=== PATIENT | female | born 1995 | race Two or more races ===

== ENCOUNTER 2021-05-21 08:34 | Emergency (ER) | payer MEDICAID ==
[~2021-05-21] VITALS: Ht 162.6 cm; Wt 104.3 kg
[2021-05-21 09:41] VITALS: BP 108/79
== END 2021-05-21 10:15 | disposition home or self-care (01) ==
LOC: ER 08:34
DX: L02.221 Furuncle of abdominal wall (principal)

== ENCOUNTER 2021-06-02 07:26 | Emergency (ER) | payer MEDICAID ==
[~2021-06-02] VITALS: Ht 152.4 cm; Wt 104.3 kg
[2021-06-02 07:36] VITALS: BP 141/96
== END 2021-06-02 09:22 | disposition home or self-care (01) ==
LOC: ER 07:26
DX: Z48.01 Encounter for change or removal of surgical wound dressing (principal)

== ENCOUNTER 2021-08-05 06:36 | Emergency (ER) | payer MEDICAID ==
[~2021-08-05] VITALS: Ht 162.6 cm; Wt 105.2 kg
[2021-08-05 08:37] VITALS: BP 123/65
== END 2021-08-05 09:06 | disposition home or self-care (01) ==
LOC: ER 06:36
DX: T24.221A Burn of second degree of right knee, initial encounter (principal); X15.2XXA Contact with hotplate, initial encounter; Y93.89 Activity, other specified; Y92.89 Other specified places as the place of occurrence of the external cause; Y99.8 Other external cause status
CPT/HCPCS: 16020

== ENCOUNTER 2022-03-25 07:05 | Emergency (ER) | payer MEDICAID ==
[~2022-03-25] VITALS: Ht 162.6 cm; Wt 104.3 kg
[2022-03-25 07:33] VITALS: BP 134/89
[2022-03-25 08:24] LABS: Basophils # (auto) 0.1 10 ^3/uL (0-0.2); Basophils % (auto) 0.7 % (0.0-2.0); Eosinophils # (auto) 0.1 10 ^3/uL (0-0.8); Eosinophils % (auto) 1.6 % (0.0-7.0); Hematocrit 43.9 % (36.0-46.0); Hemoglobin 14.4 g/dL (12.2-16.2); Lymphocytes # (auto) 2.8 10 ^3/uL (0.4-5.4); Lymphocytes % (auto) 31.8 % (10.0-50.0); Mean Corpuscular Hemoglobin 28.3 pg (28.0-32.0); Mean Corpuscular Hgb Conc. 32.8 g/dL (32.0-36.0); Mean Corpuscular Volume 86.4 fL (80.0-100.0); Monocytes # (auto) 0.5 10 ^3/uL (0-1.3); Monocytes % (auto) 6.1 % (0.0-12.0); Neutrophils # (auto) 5.3 10 ^3/uL (1.6-8.6); Neutrophils % (auto) 59.8 % (37.0-80.0); Red Blood Cells 5.08 10^6/uL (4.0-5.20); Red Cell Distribution Width 14.3 % (11.8-14.3); White Blood Cell 8.9 10^3/uL (4.4-10.8)
== END 2022-03-25 10:27 | disposition home or self-care (01) ==
LOC: ER 07:05
DX: O20.0 Threatened abortion (principal); Z3A.09 9 weeks gestation of pregnancy
CPT/HCPCS: 36415; 76801; 76817; 84702; 85025

== ENCOUNTER → 2022-04-02 | Emergency (ER) | payer MEDICAID ==
[~2022-04-02] VITALS: Ht 162.6 cm; Wt 101.6 kg
[2022-04-02 11:51] VITALS: BP 133/88
== END | disposition home or self-care (01) ==
LOC: ER 07:25
DX: O03.9 Complete or unspecified spontaneous abortion without complication (principal); Z91.018 Allergy to other foods; Z3A.09 9 weeks gestation of pregnancy
CPT/HCPCS: 36415; 76801; 76817; 84702

== ENCOUNTER 2024-03-22 11:31 | Emergency (ER) | payer MEDICAID ==
[~2024-03-22] VITALS: Ht 162.6 cm; Wt 104.9 kg
[2024-03-22 12:12] VITALS: BP 138/88; PULSE 91; RESP 18; TEMP 98.8; O2SAT 96
[2024-03-22] MEDS ORDERED: CEPH500C PO (12:53)
== END 2024-03-22 13:07 | disposition home or self-care (01) ==
LOC: ER 11:31
DX: R19.07 Generalized intra-abdominal and pelvic swelling, mass and lump (principal); L08.89 Other specified local infections of the skin and subcutaneous tissue; Z79.899 Other long term (current) drug therapy; Z91.018 Allergy to other foods

== ENCOUNTER 2024-04-03 16:54 | Emergency (ER) | payer MEDICAID ==
[~2024-04-03] VITALS: Ht 162.6 cm; Wt 103.2 kg
[~2024-04-03 16:54] MED LIST: CEPH500C PO
[2024-04-03 17:15] VITALS: BP 128/74; PULSE 76; RESP 17; TEMP 98.2; O2SAT 98
[2024-04-03] MEDS: LIDOCAINE 1% HCL (LOCAL ANESTH.) INJ 20ML MDV IJ ONE (17:21)
[2024-04-03] MEDS: LIDOCAINE 1% HCL (LOCAL ANESTH.) INJ 20ML MDV ONE (17:28)
[2024-04-03] MEDS ORDERED: BACDST PO (17:30)
== END 2024-04-03 17:32 | disposition home or self-care (01) ==
LOC: ER 16:54
DX: L02.211 Cutaneous abscess of abdominal wall (principal); Z79.899 Other long term (current) drug therapy; Z91.018 Allergy to other foods
CPT/HCPCS: 10060; 99283; J2001

== ENCOUNTER 2024-04-05 11:44 | Emergency (ER) | payer MEDICAID ==
[~2024-04-05] VITALS: Ht 162.6 cm; Wt 102.3 kg
[~2024-04-05 11:44] MED LIST changes: +BACDST PO
[2024-04-05 12:51] VITALS: BP 122/68; PULSE 88; RESP 18; TEMP 98.9; O2SAT 96
== END 2024-04-05 13:08 | disposition home or self-care (01) ==
LOC: ER 11:44
DX: Z48.00 Encounter for change or removal of nonsurgical wound dressing (principal)

== ENCOUNTER 2024-09-12 16:25 | Emergency (ER) | payer MEDICAID ==
[~2024-09-12] VITALS: Ht 165.1 cm; Wt 100.0 kg
--- NOTE | 2024-09-12 16:54 | ED.PDOC ---
History of Present Illness HPI Comments 29 y.o female presents to the ED for a chief complaint of fatigue, SOB, and cough that presented 2 days ago. Patient reports ongoing symptoms with new onset of a tingling sensation to her fingers which she states has not had in the past. Patient denies any chest pain, numbness, focal weaknesses, slurred speech or confusion. Patient is ambulating with steady gait. She has a medical history of gestational DM. Time Seen by MD: 16:48 Primary Care Provider: BRIGETTE Lucero Notes: Nurses Notes, Medications, Allergies Allergies: Coded Allergies: Fruit Extracts (Verified Allergy, Severe, 03/25/22) Home Meds Active Scripts Gabapentin (Gabapentin) 300 Mg Cap, 1 CAP PO TID, #20 CAP 0 Refills Prov:OMAR VILLELA PAC 09/12/24 Albuterol Sulfate (Albuterol Sulfate Hfa) 108 Mcg/Act Aer, 108 MCG IN Q4HP PRN, #1 AER Prov:OMAR VILLELA PAC 09/12/24 Sulfamethoxazole W/Trimethopri (Bactrim Ds Tablet) 1 Tab Tb, 1 TAB PO BID for 10 Days, #20 TAB Prov:LEEANNE POOLE 04/03/24 Cephalexin Monohydrate (Cephalexin) 500 Mg Cap, 1 CAP PO QID, #40 CAP Prov:LEEANNE POOLE 03/22/24 Information Source: Patient Mode of Arrival: Ambulatory Severity: Moderate Timing: Days (2) Duration: Since onset Prehospital treatment: None Past Medical History PAST MEDICAL HISTORY: Denies Past Medical History (Other): gestational DM Surgical History: Cholecystectomy, [employer] History: Denies all [employer] Hx Family History Family History: Reviewed,noncontributory to illness Social History Smoker: Non-Smoker Alcohol: Denies ETOH Use Drugs: Denies Drug Use Lives In: Home Constitutional: denies: chills, diaphoresis, fatigue, fever, malaise, sweats, weakness, others EENTM: denies: blurred vision, double vision, ear bleeding, ear discharge, ear drainage, ear pain, ear ringing, eye pain, eye redness, hearing loss, mouth pain, mouth swelling, nasal discharge, nose bleeding, nose congestion, nose pain, photophobia, tearing, throat pain, throat swelling, voice changes, others Respiratory: reports: cough, shortness of breath; denies: hemoptysis, orthopnea, SOB at rest, SOB with excertion, stridor, wheezing, others Cardiovascular: denies: chest pain, dizzy spells, diaphoresis, Dyspnea on exertion, edema, irregular heart beat, left arm pain, lightheadedness, palpitations, PND, syncope, others Gastrointestinal: denies: abdomen distended, abdominal pain, blood streaked bowels, constipated, diarrhea, dysphagia, difficulty swallowing, hematemesis, me lorraine, nausea, poor appetite, poor fluid intake, rectal bleeding, rectal pain, vomiting, others Genitourinary: denies: abnormal vagina bleeding, burning, dyspareunia, dysuria, flank pain, frequency, hematuria, incontinence, pain, , vagina discharge, urgency, others Neurological: reports: tingling (on bilateral hands and fingers ); denies: dizziness, fainting, headache, left sided numbness, left sided weakness, numbness, paresthesia, pre-existing deficit, right sided numbness, right sided weakness, seizure, speech problems, tremors, weakness, others Musculoskeletal: denies: back pain, gout, joint pain, joint swelling, muscle pain, muscle stiffness, neck pain, others Integumetry: denies: bruises, change in color, change in hair/nails, dryness, laceration, lesions, lumps, rash, wounds, others Allergic/Immunocompromised: denies: Difficulty Healing, Frequent Infections, Hives, Itching, others Hematologic/Lymphatic: denies: anemia, blood clots, easy bleeding, easy bruising, swollen glands, others Endocrine: denies: excessive hunger, excessive sweating, excessive thirst, excessive urination, flushing, intolerance to cold, intolerance to heat, unexplained weight gain, unexplained weight loss, others Psychiatric: denies: anxiety, bipolar disorder, depression, hopeless, panic disorder, schizophrenia, sleepless, suicidal, others All Other Systems: Reviewed and Negative Physical Exam General Appearance: Moderate Distress ([id number] distress due to shortness a breath and hand concerns.), Obese HEENT: Normal ENT Inspection, Pharynx Normal, TMs Normal Neck: Full Range of Motion, Non-Tender, Normal, Normal Inspection Respiratory: Chest Non-Tender, Lungs Clear, No Accessory Muscle Use, No Respiratory Distress, Normal Breath Sounds, Other (Unremarkable auscultation bilateral lung hernandez.) Cardiovascular: No Edema, No JVD, No Murmur, No Gallop, Normal Peripheral Pulses, Regular Rate/Rhythm Breast Exam: Deferred Gastrointestinal: No Organomegaly, Non Tender, No Pulsatile Mass, Normal Bowel Sounds, Soft Genitalia: Deferred Pelvic: Deferred Rectal: Deferred Extremities: No calf tenderness, Normal capillary refill, Normal range of motion, No pedal edema, Other (Evaluation of bilateral upper extremities is unremarkable. No signs of trauma. Patient complains of tingling. No signs of infection.) Neurologic: Alert, No Motor Deficits, Normal Affect, Normal Mood, No Sensory Deficits Cerebellar Function: Normal Reflexes: Normal Skin: Dry, Normal Color, Warm Lymphatic: No Adenopathy Was a procedure done? Was a procedure done?: No Differential Dx Considerations may include: Influenza, URI, viral syndrome, Dehydration, Electrolyte imbalance X-Ray, Labs, Meds, VS Vital Signs Date Time Temp Pulse Resp B/P (MAP) Pulse Ox O2 Delivery O2 Flow Rate FiO2 09/12/24 16:45 89 09/12/24 16:30 98.5 106 18 152/79 (103) 96 138/96 (110) Lab Test 09/12/24 18:54 09/12/24 17:11 09/12/24 16:54 09/12/24 16:50 Range/Units Urine Color Yellow Yellow Urine Clarity Clear Clear Urine pH 6.5 5.0-9.0 Urine Specific [place] 1.020 1.001-1.035 Urine Protein Negative Negative Urine Ketones Negative Negative Urine Blood Negative Negative /uL Urine Nitrite Negative Negative Urine Bilirubin Negative Negative Urine Urobilinogen Normal Negative mg/dL Urine Leukocyte Esterase 2+ Negative /uL Urine RBC 1 0 - 4 /hpf Urine WBC 4 0 - 5 /hpf Urine Squamous Epithelial Cells Few <5 /hpf Urine Bacteria Few H None Seen /hpf Urine Glucose Normal Normal mg/dL Urine Test Negative Negative White Blood Count 9.8 4.4-10.8 10^3/uL Red Blood Count 5.12 4.0-5.20 10^6/uL Hemoglobin 14.9 12.2-16.2 g/dL Hematocrit 43.7 36.0-46.0 % Mean Corpuscular Volume 85.3 80.0-100.0 fL Mean Corpuscular Hemoglobin 29.2 28.0-32.0 pg Mean Corpuscular Hemoglobin Concent 34.2 32.0-36.0 g/dL Red Cell Distribution Width 13.6 11.8-14.3 % Platelet Count 364 140-450 10^3/uL Mean Platelet Volume 7.1 6.9-10.8 fL Neutrophils (%) (Auto) 71.0 37.0-80.0 % Lymphocytes (%) (Auto) 22.7 10.0-50.0 % Monocytes (%) (Auto) 5.0 0.0-12.0 % Eosinophils (%) (Auto) 0.7 0.0-7.0 % Basophils (%) (Auto) 0.6 0.0-2.0 % Neutrophils # (Auto) 6.9 1.6-8.6 10 ^3/uL Lymphocytes # (Auto) 2.2 0.4-5.4 10 ^3/uL Monocytes # (Auto) 0.5 0-1.3 10 ^3/uL Eosinophils # (Auto) 0.1 0-0.8 10 ^3/uL Basophils # (Auto) 0.1 0-0.2 10 ^3/uL Nucleated Red Blood Cells 0.0 % D-Dimer, Quantitative < 0.19 0.0-0.49 mg/L FEU Sodium Level 141 136-145 mmol/L Potassium Level 3.8 3.5-5.1 mmol/L Chloride Level 105 98-107 mmol/L Carbon Dioxide Level 28 20-31 mmol/L Anion Gap 8 5-15 Blood Urea Nitrogen 14 9-23 mg/dL Creatinine 0.81 0.550-1.02 mg/dL Glomerular Filtration Rate Calc 99 >90 mL/min BUN/Creatinine Ratio 17.3 10.0-20.0 Serum Glucose 97 74-106 mg/dL Calcium Level 10.2 8.7-10.4 mg/dL Influenza Type A Antigen Negative Negative Influenza Type B Antigen Negative Negative SARS-CoV-2 Antigen (Rapid) Negative NEGATIVE POC Glucose 104 70-106 mg/dl X-Ray, Labs, Meds, VS Comment All studies performed the ED were evaluated by me personally. EKG revealed a sinus rhythm with a rate of 89. Borderline short ME interval with low voltage in the precordial leads and baseline wander in leads two three V3 V4 and V5. ME interval of 110 and a QT interval of 359. All serum laboratories were unremarkable for any systemic illness. Urinalysis revealed a urinary tract infection. Chest x-ray was unremarkable for any consolidation or pneumonia. X- ray of cervical spine was unremarkable for any degenerative disc disease. Patient appears to be suffering from some neuropathy of her hands as well as a viral illness and a urinary tract infection. Advised patient utilize antibiotics as directed until completion additionally, advised patient utilize additional medication as needed and follow up with the primary care provider for discussions related to her bilateral hand concerns. Time of 1ST Reevaluation: 20:27 Reevaluation 1ST: Unchanged Consultation: PCP Patient Education/Counseling: Diagnosis, Treatment, Prognosis Family Education/Counseling: Diagnosis, Treatment, No Family Present Departure 1 Departure Time of Disposition: 20:27 Impression: Primary Impression: Neuropathy of hand Additional Impressions: Viral upper respiratory illness UTI (urinary tract infection) Disposition: HOME / SELF CARE / HOMELESS Condition: Stable Additional Instructions: Advised patient utilize medication as needed and additionally, patient will need to follow up with the primary care provider for continued evaluation of bilateral hand concerns. e-Prescriptions Nitrofurantoin Monohydrate Mac (Macrobid) 100 Mg Cap 100 MG PO BID for 5 Days, #10 CAP Prov: OMAR VILLELA PAC 09/12/24 Gabapentin (Gabapentin) 300 Mg Cap 1 CAP PO TID, #20 CAP 0 Refills Prov: OMAR VILLELA PAC 09/12/24 Albuterol Sulfate (Albuterol Sulfate Hfa) 108 Mcg/Act Aer 108 MCG IN Q4HP PRN, #1 AER Prov: OMAR VILLELA PAC 09/12/24 Discharged With: Self, Friend Critical Care Note Critical Care Time?: No Stability Stability form required: No I personally scribed for OMAR VILLELA PAC ([email or web address]) on 09/12/24 at 16:54. Electronically submitted by Sveta Keller ([facility]). OMAR VILLELA PAC Sep 12, 2024 16:54
--- NOTE | 2024-09-12 17:08 | ECG ---
[facility] Test Date: 2024-09-12 Test Time: 16:45:38 Pat Name: NICHOLAS PORTER Department: ER Room: Gender: F Campus President: ANGE : 1995 Requested By: OMAR VILLELA Order Number: [id number] Reading MD: Chau Mann Measurements Intervals Carrier Rate: 89 P: 64 [place]: 110 QRS: 22 QRSD: 95 T: 24 QT: 359 QTc: 437 Interpretive Statements Sinus rhythm Borderline short [place] interval Low voltage, precordial leads Baseline wander in lead(s) II,III,aVF,V3,V4,V5 Electronically Signed On 09-19-2024 9:48:08 PST by Chau Mann Please click the below link to view image of tracing.
[2024-09-12 17:31] LABS: Basophils # (auto) 0.1 10 ^3/uL (0-0.2); Basophils % (auto) 0.6 % (0.0-2.0); Eosinophils # (auto) 0.1 10 ^3/uL (0-0.8); Eosinophils % (auto) 0.7 % (0.0-7.0); Hematocrit 43.7 % (36.0-46.0); Hemoglobin 14.9 g/dL (12.2-16.2); Lymphocytes # (auto) 2.2 10 ^3/uL (0.4-5.4); Lymphocytes % (auto) 22.7 % (10.0-50.0); Mean Corpuscular Hemoglobin 29.2 pg (28.0-32.0); Mean Corpuscular Hgb Conc. 34.2 g/dL (32.0-36.0); Mean Corpuscular Volume 85.3 fL (80.0-100.0); Monocytes # (auto) 0.5 10 ^3/uL (0-1.3); Neutrophils # (auto) 6.9 10 ^3/uL (1.6-8.6); Platelet Count (auto) 364 10^3/uL (140-450); Red Blood Cells 5.12 10^6/uL (4.0-5.20); Red Cell Distribution Width 13.6 % (11.8-14.3); White Blood Cell 9.8 10^3/uL (4.4-10.8)
[2024-09-12 17:49] LABS: Anion Gap 8 (5-15); Carbon Dioxide 28 mmol/L (20-31); Chloride 105 mmol/L (98-107); Potassium 3.8 mmol/L (3.5-5.1); Sodium 141 mmol/L (136-145)
[2024-09-12 17:50] LABS: Calcium 10.2 mg/dL (8.7-10.4)
[2024-09-12 17:51] LABS: COVID19 ANTIGEN SOFIA FIA NEGATIVE (NEGATIVE)
[2024-09-12 17:52] LABS: Rapid Influenza A Negative (Negative); Rapid Influenza B Negative (Negative)
[2024-09-12 17:55] LABS: BUN/Creatinine Ratio 17.3 (10.0-20.0); Blood Urea Nitrogen 14 mg/dL (9-23); Glucose 97 mg/dL (74-106)
[2024-09-12 19:41] LABS: Urine Bacteria FEW /hpf (None Seen); Urine Blood Negative /uL (Negative); Urine Clarity Clear (Clear); Urine Color Yellow (Yellow); Urine Protein, UAD Negative (Negative); Urine Urobilinogen Normal (Negative); Urine WBC 4 /hpf (0 - 5); Urine pH 6.5 (5.0-9.0)
--- NOTE | 2024-09-12 20:05 | DVH ---
EXAMINATION: AP portable chest radiograph CLINICAL HISTORY: Shortness of breath COMPARISON: None TECHNIQUE: Single view of the chest FINDINGS: Negative AP chest. No dominant consolidations. The costophrenic angles are clear. No sizable pleural effusions or pneumo thorax identified. The cardiomediastinal silhouette appears within normal limits given technique. IMPRESSION: 1. Negative AP chest.
--- NOTE | 2024-09-12 20:06 | DVH ---
INDICATION: Radiculopathy COMPARISON: None TECHNIQUE: 4 views of the cervical spine were obtained. FINDINGS: The cervical vertebral alignment is normal. The predental space is normal. The intervertebral disc spaces are well-maintained. No significant facet arthropathy is noted. No acute fracture, vertebral compression deformity or aggressive osseous lesions. The imaged lung apices are unremarkable. IMPRESSION: No acute fracture.
[2024-09-12] MEDS ORDERED: GABA-1250 PO (20:28)
[2024-09-12] MEDS ORDERED: ALBU108A5 IN (20:28)
[2024-09-12 20:47] VITALS: BP 115/78; PULSE 76; RESP 14; TEMP 98.6; O2SAT 99
[2024-09-12] MEDS ORDERED: NITR-87 PO (20:48)
[2024-09-12] MEDS: NITROFURANTOIN 100 mg CAP PO ONE (20:54)
== END 2024-09-12 21:17 | disposition home or self-care (01) ==
LOC: ER 16:26
DX: G62.9 Polyneuropathy, unspecified (principal); J06.9 Acute upper respiratory infection, unspecified; B97.89 Other viral agents as the cause of diseases classified elsewhere; N39.0 Urinary tract infection, site not specified; Z88.8 Allergy status to other drugs, medicaments and biological substances; Z79.899 Other long term (current) drug therapy; Z90.49 Acquired absence of other specified parts of digestive tract; Z98.890 Other specified postprocedural states; Z20.822 Contact with and (suspected) exposure to COVID-19
CPT/HCPCS: 36415; 71045; 72040; 80048; 81001; 81025; 82962; 85025; 85379; 87426; 87804; 93005